=== PATIENT | male | born 1985 | race Caucasian/White ===

== ENCOUNTER → 2017-07-30 | Outpatient (CLI) | payer BC ==
--- NOTE | 2017-07-30 13:46 | US ---
EXAMINATION TYPE: US scrotum with doppler. Grayscale and color Doppler Duplex imaging performed of t he scrotum. DATE OF EXAM: 07/30/2017 COMPARISON: NONE CLINICAL HISTORY: N50.811 Testicular Pain,right. Right testicular pain x 4 days EXAM MEASUREMENTS: TESTICLES: Right Testicle: 5.4 x 2.8 x 3.8 cm Left Testicle: 5.6 x 3.1 x 3.8 cm EPIDIDYMIS HEAD: Right Epididymis: 0.9 x 1.4 x 1.4 cm Left Epididymis: 0.9 x 1.4 x 1.6 cm Doppler performed to assess for testicular vascularity; good bilateral color flow and waveforms are s een. There is no evidence of testicular torsion. Presence of hydroceles: right 4.5cm, left 5.3cm Presence of varicoceles: no Left epididymis: 0.4cm cyst IMPRESSION: 1. Bilateral hydroceles. 2. Left-sided epididymal cyst.
== END | disposition home or self-care (01) ==
LOC: RADUSWWP 12:55
PROVIDERS: ATTEND Internal Medicine
DX: N43.3 Hydrocele, unspecified (principal); N50.3 Cyst of epididymis
CPT/HCPCS: 76870; 93975

== ENCOUNTER → 2018-11-05 | Outpatient (CLI) | payer BC ==
--- NOTE | 2018-11-05 13:03 | US ---
EXAMINATION TYPE: US abdomen complete DATE OF EXAM: 11/05/2018 COMPARISON: NONE CLINICAL HISTORY: R10.11 Right upper quadrant pain. EXAM MEASUREMENTS: Liver Length: 12.6 cm Gallbladder Wall: 0.2 cm CBD: 0.3 cm Spleen: 9.2 cm Right Kidney: 11.5 x 4.3 x 5.9 cm Left Kidney: 10.8 x 5.4 x 5.4 cm Pancreas: Tail obscured by overlying bowel gas Liver: homogeneous Gallbladder: wnl Evidence for sonographic Wilcox's sign: no CBD: wnl Spleen: wnl Right Kidney: No hydronephrosis or masses seen Left Kidney: No hydronephrosis or masses seen Upper IVC: wnl Abd Aorta: Bifurcation obscured by overlying bowel gas The visualized liver is homogenous. The intrahepatic portion of the IVC and visualized abdominal aor ta are within normal limits. There is no evidence of cholelithiasis. Common bile duct is unremarkab le. The visualized portions of the pancreas are homogenous. The spleen is unremarkable. Kidneys ar e symmetric and free of hydronephrosis. No renal lesions are seen. IMPRESSION: No acute finding is seen to account for patient's symptoms of right upper quadrant pain.
--- NOTE | 2018-11-06 10:33 | ECHOF ---
Referral Reason:Q23.1 Bicuspid Aortic Valve MEASUREMENTS -------- HEIGHT: 175.3 cm WEIGHT: 78.0 kg BP: IVSd: 0.9 cm (0.6 - 1.1) LVIDd: 5.2 cm (3.9 - 5.3) LVPWd: 1.0 cm (0.6 - 1.1) IVSs: 1.3 cm LVIDs: 3.5 cm LVPWs: 1.5 cm LAESV Index (A-L): 23.94 ml/m Ao Diam: 3.1 cm (2.0 - 3.7) AV Cusp: 2.2 cm (1.5 - 2.6) LA Diam: 2.4 cm (2.7 - 3.8) MV EXCURSION: 22.451 mm (> 18.000) MV EF SLOPE: 124 mm/s (70 - 150) EPSS: 0.8 cm MV E Nicola: 0.88 m/s MV DecT: 223 ms MV A Nicola: 0.56 m/s MV E/A Ratio: 1.56 AV maxP.34 mmHg AV meanP.17 mmHg AR PHT: 267 ms RAP: 5.00 mmHg RVSP: 19.52 mmHg FINDINGS -------- Sinus rhythm. This was a technically good study. The left ventricular size is normal. Left ventricular wall thickness is normal. Overall left vent ricular systolic function is normal with, an EF between 55 - 60 %. The right ventricle is normal in size. Normal LA size by volume 22+/-6 ml/m2. The right atrial size is normal. Interatrial and interventricular septum intact. There is mild aortic regurgitation. Peak/mean gradient across the Aortic Valve is 11.34mmHg / 6.17m mHg. Functionally bicuspid aortic valve. There is trace mitral regurgitation. Trace tricuspid regurgitation present. The right ventricular systolic pressure, as measured by Dopp ler, is 19.52mmHg. There is no pulmonic regurgitation present. The aortic root size is normal. Normal inferior vena cava with normal inspiratory collapse consistent with estimated right atrial pre ssure of 5 mmHg. There is no pericardial effusion. CONCLUSIONS -------- 1. Sinus rhythm. 2. This was a technically good study. 3. The left ventricular size is normal. 4. Left ventricular wall thickness is normal. 5. Overall left ventricular systolic function is normal with, an EF between 55 - 60 %. 6. The right ventricle is normal in size. 7. Normal LA size by volume 22+/-6 ml/m2. 8. The right atrial size is normal. 9. Interatrial and interventricular septum intact. 10. There is mild aortic regurgitation. 11. Peak/mean gradient across the Aortic Valve is 11.34mmHg / 6.17mmHg. 12. Functionally bicuspid aortic valve. 13. There is trace mitral regurgitation. 14. Trace tricuspid regurgitation present. 15. The right ventricular systolic pressure, as measured by Doppler, is 19.52mmHg. 16. There is no pulmonic regurgitation present. 17. The aortic root size is normal. 18. Normal inferior vena cava with normal inspiratory collapse consistent with estimated right atrial pressure of 5 mmHg. 19. There is no pericardial effusion. GRAPHICS SOFTWARE ENGINEER: Lanie Mcadams RDCS
== END ==
LOC: RADUSWWP 07:24
PROVIDERS: ATTEND Internal Medicine
DX: I35.1 Nonrheumatic aortic (valve) insufficiency (principal); R10.11 Right upper quadrant pain
CPT/HCPCS: 76700; 93306

== ENCOUNTER → 2023-07-07 | Outpatient (CLI) | payer BC ==
--- NOTE | 2023-07-08 07:39 | CA ---
Transthoracic Echo Report Name: Desmond Barnett Age: 38 Gender: M : 1985 Exam Date: 07/07/2023 15:01 Exam Location: [facility] Ht (in): 69 Wt (lb): 160 Ordering Physician: Shailesh Valladares DO Attending/Referring Phys: Alejandra Bonilla PAC Vendor Specialist Dilcia Khan RDCS Procedure CPT: Indications: Q23.1 CONGENITAL INSUFFICIENCY OF AORTIC VALVE Cardiac Hx: Technical Quality: Good Contrast 1: Total Dose (mL): Contrast 2: Total Dose (mL): MEASUREMENTS (Male / Female) Normal Values 2D ECHO LV Diastolic Diameter PLAX 4.7 cm 4.2 - 5.9 / 3.9 - 5.3 cm LV Systolic Diameter PLAX 3.3 cm IVS Diastolic Thickness 1.2 cm 0.6 - 1.0 / 0.6 - 0.9 cm LVPW Diastolic Thickness 1.0 cm 0.6 - 1.0 / 0.6 - 0.9 cm LV Relative Wall Thickness 0.5 RV Internal Dim ED PLAX 3.2 cm LVOT Diameter 2.5 cm LA Systolic Diameter LX 3.4 cm 3.0 - 4.0 / 2.7 - 3.8 cm LV Diastolic Volume MOD 4C 71.9 cm??? LV Systolic Volume MOD 4C 31.1 cm??? LV Ejection Fraction MOD 4C 56.7 % LV Cardiac Index MOD 4C 1536.2 cm???/min???m??? LV Diastolic Length 4C 8.5 cm LV Systolic Length 4C 7.3 cm LV Diastolic Volume MOD 2C 111.6 cm??? LV Systolic Volume MOD 2C 52.1 cm??? LV Ejection Fraction MOD 2C 53.3 % LV Cardiac Index MOD 2C 2242.0 cm???/min???m??? LV Diastolic Length 2C 9.9 cm LV Systolic Length 2C 8.5 cm LA Volume 43.4 cm??? 18 - 58 / 22 - 52 cm??? LA Volume Index 23.1 cm???/m??? 16 - 28 cm???/m??? M-MODE Aortic Root Diameter MM 3.7 cm MV E Point Septal Separation 0.8 cm AV Cusp Separation MM 2.6 cm DOPPLER AV Peak Velocity 176.1 cm/s AV Peak Gradient 12.4 mmHg AV Mean Velocity 113.6 cm/s AV Mean Gradient 6.0 mmHg AV Velocity Time Integral 34.1 cm AI Peak Velocity 479.0 cm/s AI Peak Gradient 91.8 mmHg AI Pressure Half Time 810.3 ms LVOT Peak Velocity 109.7 cm/s LVOT Peak Gradient 4.8 mmHg AV Area Cont Eq pk 3.0 cm??? MV Area PHT 4.6 cm??? Mitral E Point Velocity 72.9 cm/s Mitral A Point Velocity 50.8 cm/s Mitral E to A Ratio 1.4 MV Deceleration Time 163.9 ms MV E' Velocity 9.8 cm/s Mitral E to MV E' Ratio 7.4 FINDINGS Left Ventricle Left ventricular ejection fraction is estimated at 55-60 %. Left ventricular cavity size normal. Mildly increased septal wall thickness.normal left ventricular wall motion. Right Ventricle Normal right ventricular size. Unable to estimate the right ventricular systolic pressure. Right Atrium Normal right atrial size. Left Atrium Normal left atrial size. Mitral Valve Structurally normal mitral valve. No mitral stenosis or prolapse. Trace to mild mitral regurgitation. Aortic Valve Thickened aortic valve without stenosis. Max gradient 12 mmhg, mean gradient 6 mmhg. Mild aortic regurgitation. Tricuspid Valve Structurally normal tricuspid valve. No tricuspid stenosis or prolapse. Trace to mild tricuspid regurgitation. Pulmonic Valve Structurally normal pulmonic valve. No pulmonic regurgitation. Pericardium No pericardial effusion. Aorta Normal size aortic root and proximal ascending aorta. CONCLUSIONS 1. Normal left ventricular size and systolic function 2. Tricuspid aortic valve with Mild aortic regurgitation 3. Trace to mild mitral and tricuspid regurgitation Previewed by: Dr. Ashwin Dunlap MD (Electronically Signed) Final Date: 08 July 2023 07:39
== END | disposition home or self-care (01) ==
LOC: RADECHMAIN 14:58
PROVIDERS: ATTEND Family Medicine
DX: Q23.1 Congenital insufficiency of aortic valve (principal); I34.0 Nonrheumatic mitral (valve) insufficiency; I36.1 Nonrheumatic tricuspid (valve) insufficiency
CPT/HCPCS: 93306